=== PATIENT | female | born 2005 | race Caucasian/White ===

== ENCOUNTER 2024-07-24 15:50 | Emergency (ER) | payer MEDICARE ==
[~2024-07-24] VITALS: Ht 154.9 cm; Wt 56.7 kg
[2024-07-24] MEDS ORDERED: PRED50TA PO (17:27)
[2024-07-24] MEDS ORDERED: VALA10002 PO (17:27)
[2024-07-24 17:35] VITALS: BP 104/70; TEMP 97.2; O2SAT 99
== END 2024-07-24 17:36 | disposition home or self-care (01) ==
LOC: ER 15:50
DX: R20.1 Hypoesthesia of skin (principal); Z79.52 Long term (current) use of systemic steroids; Z79.624 Long term (current) use of inhibitors of nucleotide synthesis
CPT/HCPCS: A4606; A4663